=== PATIENT | female | born 1955 | race Caucasian/White ===

== ENCOUNTER 2022-08-31 09:55 | Observation (INO) | payer MEDICARE ==
[2022-08-31] MEDS ORDERED: Ondansetron PF 4 MG/2 ML Vial IVP PRN (10:05)
[2022-08-31] MEDS ORDERED: Piperacillin/Tazobactam 3.375 GM in Sodium Chloride 0.9% 100 ML IVPB SCH ×2 (10:15→12:00)
[2022-08-31] MEDS ORDERED: Lactated Ringer's 1,000 ML IV SCH (10:15)
[2022-08-31] MEDS ORDERED: Scopolamine 1.5 mg/72 hour Patch TD SCH (10:30)
[2022-08-31 11:21] VITALS: BMI 31.9
[2022-08-31] MEDS ORDERED: Morphine 2 MG/ML VIAL SLOW IVP PRN (11:37)
[2022-08-31] MEDS ORDERED: FLU VACC QS2022-23(65YR UP)/PF 240 MCG/0.7 ML SYRINGE IM ONE (11:45)
[2022-08-31] MEDS ORDERED: Bupivacaine HCl 0.5%/Epinephrine 1:200,000/PF 30 ml Vial ONE (11:55)
[2022-08-31] MEDS ORDERED: Lidocaine 1% MPF 2 ML VIAL ONE (12:26)
[2022-08-31] MEDS ORDERED: Piperacillin/Tazobactam 3.375 GM VIAL ONE (12:30)
[2022-08-31] MEDS ORDERED: PROPOFOL 20 ML ONE (12:41)
[2022-08-31] MEDS ORDERED: Fentanyl 100 MCG/2 ML VIAL ONE ×2 (12:41→13:09)
[2022-08-31] MEDS ORDERED: Dexamethasone 4 mg/ml Vial ONE (12:42)
[2022-08-31] MEDS ORDERED: Rocuronium Bromide 10 MG/ML (10ML VIAL) ONE (12:42)
[2022-08-31] MEDS ORDERED: Ondansetron PF 4 MG/2 ML Vial ONE (12:42)
[2022-08-31] MEDS ORDERED: Esmolol 100 MG/10 ML VIAL ONE (12:43)
[2022-08-31] MEDS ORDERED: Lidocaine 1% PF 5 ML VIAL ONE (12:43)
[2022-08-31] MEDS ORDERED: Succinylcholine 200 MG/10 ml SYRINGE FS ONE (12:43)
[2022-08-31] MEDS ORDERED: Ketorolac Tromethamine 30 MG/ML VIAL ONE (13:08)
[2022-08-31] MEDS ORDERED: SUGAMMADEX SODIUM 200 MG/2 ML VIAL ONE (13:13)
[2022-08-31 17:24] VITALS: BP 136/71; TEMP 98.7
== END 2022-08-31 15:40 | disposition home or self-care (01) ==
LOC: CSHTELE 09:55
PROVIDERS: ADMIT Surgery; ATTEND Surgery
PROC: 0DTJ4ZZ Resection of Appendix, Percutaneous Endoscopic Approach (ICD-10-PCS; principal; 2022-08-31)
DX: K35.891 Other acute appendicitis without perforation, with gangrene (principal); E78.00 Pure hypercholesterolemia, unspecified; K21.9 Gastro-esophageal reflux disease without esophagitis; Z85.3 Personal history of malignant neoplasm of breast; Z90.12 Acquired absence of left breast and nipple; Z88.0 Allergy status to penicillin; Z88.2 Allergy status to sulfonamides; Z79.899 Other long term (current) drug therapy
CPT/HCPCS: 44970; C1776; 88304; A4649; J1100; J1885; J2405; J2543; J2704; J3010; J7120

== ENCOUNTER 2022-09-13 11:04 | Emergency (ER) | payer MEDICARE ==
[2022-09-13] MEDS ORDERED: Acetaminophen 325 MG TAB ONE (12:53)
== END 2022-09-13 12:57 | disposition home or self-care (01) ==
LOC: CSHERS 11:04
DX: S80.211A Abrasion, right knee, initial encounter (principal); E78.00 Pure hypercholesterolemia, unspecified; W18.39XA Other fall on same level, initial encounter

== ENCOUNTER 2024-05-13 09:59 | Emergency (ER) | payer MEDICARE ==
[2024-05-13 10:20] LABS: Bilirubin Neg (Negative); Blood, Urine 250 (Negative); Glucose, Urine (Dipstick) Normal (Negative); Ketone, Urine Negative (Negative); Leukocyte 500 (Negative); Nitrite Negative (Negative); Protein, Urine (Dipstick) 30 mg/dl (Neg-Trace); Specific Gravity, Urine 1.005 (1.005-1.030); Urobilinogen Normal mg/dL (Less than 2)
[2024-05-13 10:22] LABS: Clarity Cloudy (Clear)
[2024-05-13 10:41] LABS: Bacteria/HPF 1+ HPF (None Seen); CAUTI Indications for Culture Dysuria,urgency,freq; WBC/HPF Greater Than 50 HPF (0-3)
[2024-05-13 10:43] LABS: Urine Culture Reflex Yes Yes
== END 2024-05-13 12:51 | disposition home or self-care (01) ==
LOC: CSHERS 09:59
DX: N39.0 Urinary tract infection, site not specified (principal)
CPT/HCPCS: 81001; 87077; 87086; 87186; 99283